=== PATIENT | male | born 1975 | race Caucasian/White ===

== ENCOUNTER 2018-02-27 06:53 | Day surgery (SDC) | payer MEDICARE, MEDICAID ==
[~2018-02-27] VITALS: Ht 182.9 cm; Wt 104.9 kg
[2018-02-27] VITALS (8 sets, daily range): BP systolic 112–133; BP diastolic 71–80; PULSE 82–105; TEMP 97–98.4
[~2018-02-27 06:53] MED LIST: ALAVERT10 MG PO; ARTANE 2MG2 MG PO; ARTANE2 MG PO; ATIVAN0.5 MG PO; BACTROBAN15 GM TOP; CATAPRES 0.1MG0.1 MG PO; CLONIDINE0.1 MG PO; GEODON 20 MG20 MG PO; KEPPRA1000 MG PO; LOTRISONE 0.05%1 CRE TOP; MAGNESIUM500 MG PO; MYLICON 8080 MG/TAB. PO; NASACORT OTC NS; PEN-VEE K500 MG PO; SUDAFED 12 HOU120 MG PO; SUDAFED30 MG PO; VALIUM 10MG10 MG/TAB PO; VITAMIN B-6100 MG PO; ZYRTEC 10MG10 MG PO; [UNRECOGNIZED DRUG - OTHER]
== END 2018-02-27 13:57 | disposition home or self-care (01) ==
LOC: SDCO 06:53
DX: K02.9 Dental caries, unspecified (principal); F84.0 Autistic disorder; F43.0 Acute stress reaction; R45.1 Restlessness and agitation; F29 Unspecified psychosis not due to a substance or known physiological condition
CPT/HCPCS: J0360; J2704; J3010; J7120

== ENCOUNTER 2019-09-04 07:35 | Day surgery (SDC) | payer MEDICARE, MEDICAID ==
[~2019-09-04] VITALS: Ht 182.9 cm; Wt 109.1 kg
[2019-09-04 08:37] VITALS: BP 124/86; PULSE 78; TEMP 97.6
[2019-09-04] MEDS ORDERED: SYSTANE 0.4%-0.1 SOL OP (09:19)
[2019-09-04] MEDS ORDERED: SELSUN 120 ML120 ML TOP (09:21)
--- NOTE | 2019-09-04 10:33 | NUR ---
Pt continues to rest in bed with side rails up and mother present in room. Denies needs. Pt shook this nurses hand when asked if he was comfortable and warm enough.
[2019-09-04 13:35] VITALS: BP 124/90; PULSE 93; TEMP 97.8
--- NOTE | 2019-09-04 13:35 | NUR ---
TO RM 6 PER CART FROM PACU. AWAKE AND LOOKING AROUND. WILL FOLLOW SIMPLE INSTRUCTION, NOD HIS HEAD OR GRUNT TO ANSWER QUESTIONS. RECEIVED WATER AND DRANK ENTIRE CUP IN ONE GULP. NO ACTIVE BLEEDING NOTED FROM MOUTH. DENIES PAIN OR DISCOMFORT.
[2019-09-04 13:50] VITALS: BP 122/87; PULSE 86
--- NOTE | 2019-09-04 13:50 | NUR ---
PATIENT PULLED OFF O2. 02 SAT 93% ON ROOM AIR.
--- NOTE | 2019-09-04 14:00 | NUR ---
AMBULATED TO BATHROOM, STAND BY ASSIST WITH PATIENTS MOTHER AND NURSING STAFF. VOIDED AND AMBULATED BACK TO BED.
--- NOTE | 2019-09-04 14:10 | NUR ---
MOTHER RECEIVED DISCHARGE INSTRUCTIONS AND VERBALIZED UNDERSTANDING. PAPERWORK GIVEN TO MOTHER. ASSISTED DRESSED BY MOTHER
--- NOTE | 2019-09-04 14:50 | NUR ---
DISCHARGED PER WC BY NURSING STAFF TO PRIVATE CAR IN CARE OF MOTHER TO BE DRIVEN BACK TO [place].
== END 2019-09-04 14:58 | disposition home or self-care (01) ==
LOC: SDCO 07:35
DX: K02.9 Dental caries, unspecified (principal); F84.0 Autistic disorder; R56.9 Unspecified convulsions; J30.9 Allergic rhinitis, unspecified; F29 Unspecified psychosis not due to a substance or known physiological condition
CPT/HCPCS: J0690; J1100; J2405; J2704; J3010; J7120

== ENCOUNTER 2022-02-08 06:36 | Day surgery (SDC) | payer MEDICARE, MEDICAID ==
[~2022-02-08] VITALS: Ht 182.9 cm; Wt 111.8 kg
[~2022-02-08 06:36] MED LIST changes: +ATIVAN 0.50.5 MG/TAB PO; -ATIVAN0.5 MG PO; +SELSUN 120 ML120 ML TOP; +SYSTANE 0.4%-0.1 SOL OP
[2022-02-08 06:59] VITALS: BP 134/93; PULSE 75; TEMP 97.4
[2022-02-08] MEDS ORDERED: ARTANE 2MG2 MG PO (08:03)
[2022-02-08] MEDS ORDERED: ZOLOFT 50MG50 MG PO (08:05)
[2022-02-08 10:18] VITALS: BP 133/94; PULSE 83
--- NOTE | 2022-02-08 10:18 | NUR ---
Patient returns to room 7 per cart and is awake and alert. Temp 97.9. Patient on oxgyen at 3L per nasal cannula. Taking sips of water. Patient is not to suck on straw.
[2022-02-08 10:33] VITALS: BP 135/96; PULSE 85
--- NOTE | 2022-02-08 10:33 | NUR ---
Drinking orange juice and eating applesauce and pudding. Oxygen down to 1L per nasal cannula.
[2022-02-08 10:42] VITALS: TEMP 97.6
[2022-02-08 10:48] VITALS: BP 134/89; PULSE 88
--- NOTE | 2022-02-08 10:48 | NUR ---
Tolerates snack. Cooperative. Parents in room. Deli Slicer bleeding noted from mouth.
--- NOTE | 2022-02-08 11:00 | NUR ---
IV to INT. Assisted up to the bathroom. Gait steady. Voids and returns to room.
--- NOTE | 2022-02-08 11:10 | NUR ---
IV discontinued and site is free of redness. Patient dresses self with assist of parents.
--- NOTE | 2022-02-08 11:30 | NUR ---
Patient has voided and met criteria to go home. Dismissal instructions given to parents and provided follow up appointment date and time.
--- NOTE | 2022-02-08 11:33 | NUR ---
Patient dismissed to home per private vehicle driven by parents and taken to the front door per wheelchair with dismissal instructions in hand.
== END 2022-02-08 11:33 | disposition home or self-care (01) ==
LOC: SDCO 06:36
DX: K04.7 Periapical abscess without sinus (principal); F84.0 Autistic disorder
CPT/HCPCS: J1100; J2405; J2704; J3010; J7120

== ENCOUNTER 2022-05-31 06:28 | Day surgery (SDC) | payer MEDICARE, MEDICAID ==
[~2022-05-31] VITALS: Ht 182.9 cm; Wt 114.1 kg
[~2022-05-31 06:28] MED LIST changes: +ZOLOFT 50MG50 MG PO
[2022-05-31 07:19] VITALS: BP 138/96; PULSE 76; TEMP 98.1
[2022-05-31 10:30] VITALS: BP 144/86; PULSE 76; TEMP 97.7
[2022-05-31 10:45] VITALS: BP 145/93; PULSE 78
[2022-05-31 10:56] VITALS: TEMP 97
[2022-05-31 11:00] VITALS: BP 124/96; PULSE 76
--- NOTE | 2022-05-31 12:05 | NUR ---
Received report at bedside at 1030; pt doing well and tolerate procedure, on 2L O2 and satting well, parents at bedside; to provide ice pack and ice chips. Mouth is without active bleeding, scant dried blood noted to bottom lip.
== END 2022-05-31 12:13 | disposition home or self-care (01) ==
LOC: SDCO 06:28
DX: K02.9 Dental caries, unspecified (principal); F84.0 Autistic disorder
CPT/HCPCS: J0690; J1100; J2405; J2704; J3010; J7120